=== PATIENT | female | born 1970 | race Caucasian/White ===

== ENCOUNTER 2017-10-03 12:02 | Emergency (ER) | payer BC, OTHER ==
[~2017-10-03] VITALS: Ht 167.6 cm; Wt 53.3 kg
[2017-10-03 12:04] VITALS: Ht 167.6 cm; Wt 53.3 kg
[2017-10-03] MEDS ORDERED: ASPIRIN 81 MG TAB PO STA (12:19)
[2017-10-03] MEDS ORDERED: NITROGLYCERIN 2% 1 GM OINT PKT TD STA (12:19)
[2017-10-03] MEDS ORDERED: NITROGLYCERIN (SL) 0.4 MG TAB SL PRN (12:30)
--- NOTE | 2017-10-03 12:43 | RADRPT ---
PROCEDURE: XR Chest. CLINICAL INDICATION: chest pain TECHNIQUE: Single frontal view of the chest was obtained COMPARISON: None FINDINGS: The heart and mediastinum are within normal limits. There is mild hyperinflation. The lungs are clear. There is no pleural effusion or pneumothorax. RPTAT: AA IMPRESSION: No acute disease. .Jason Linder MD, MD Date Time Electronically viewed and signed by .Jason Linder MD, on 10/03/2017 12:43 .S/
[2017-10-03 12:45] LABS: BASOPHILS % 0.6 % (0.0-2.0); EOSINOPHILS # 0.2 10^3/ul (0.0-0.5); EOSINOPHILS % 3.2 % (0.0-7.0); HEMATOCRIT 38.7 % (37.0-47.0); LYMPHOCYTES # 2.1 10^3/ul (0.8-2.9); LYMPHOCYTES % 31.6 % (15.0-51.0); MEAN CORPUSCULAR HEMOGLOBIN 24.9 pg (29.0-33.0); MEAN CORPUSCULAR VOLUME 80.3 fl (82.0-101.0); MEAN PLATELET VOLUME 10.1 fl (7.4-10.4); MONOCYTE # 0.3 10^3/ul (0.3-0.9); NEUTROPHILS % 59.4 % (39.0-77.0); PLATELET COUNT 207 10^3/UL (140-415); RED BLOOD COUNT 4.82 10^6/ul (4.20-5.40); RED CELL DISTRIBUTION WIDTH 16.4 % (11.5-14.5); WHITE BLOOD COUNT 6.7 10^3/ul (4.8-10.8)
[2017-10-03] MEDS ORDERED: DULO60CA6 PO (13:10)
[2017-10-03] MEDS ORDERED: BUPR8TAB SL (13:14)
[2017-10-03] MEDS ORDERED: LORA-441 PO (13:14)
[2017-10-03] MEDS ORDERED: TRAZ50TA18 PO (13:15)
[2017-10-03 13:20] LABS: ANION GAP 13 (8-16); BLOOD UREA NITROGEN 10 mg/dl (7-20); CALCIUM 9.7 mg/dl (8.4-10.2); CARBON DIOXIDE 29 mmol/L (21-31); CHLORIDE 104 mmol/L (97-110); CREATININE 0.63 mg/dl (0.44-1.00); GLUCOSE 88 mg/dl (70-220); POTASSIUM 4.3 mmol/L (3.5-5.1); SODIUM 142 mmol/L (135-144)
[2017-10-03 13:32] LABS: TROPONIN-I < 0.012 ng/ml (0.00-0.12)
--- NOTE | 2017-10-03 13:53 | ERD ---
ER Documentation Chief Complaint Chief Complaint chest pressure x 3 days HPI Patient is a 47-year-old female with family history of coronary disease and smoking who presents with chest pain. She said that she has midsternal chest pain that started a few days ago that she describes as a "pressure". She has numbness to her arms bilaterally. This pain and numbness comes and goes. She had her primary doctor is a Dr. Agee. ROS All systems reviewed and are negative except as per history of present illness. Medications Home Meds Reported Medications Trazodone Hcl* (Trazodone Hcl*) 50 Mg Tablet, 75 MG PO QHS, #30 TAB 10/03/17 Lorazepam* (Ativan*) 0.5 Mg Tablet, 0.5 MG PO TID Y for ANXIETY, #60 TAB 10/03/17 Buprenorphine Hcl (BUPRENORPHINE HCL) 8 Mg Tab.subl, 4 MG SL BID, TAB.SL 10/03/17 Duloxetine Hcl* (Cymbalta*) 60 Mg Capsule.dr, 60 MG PO AFTER LUNCH, CAP 10/03/17 Allergies Allergies: Coded Allergies: Sulfa (Sulfonamide Antibiotics) (Verified Allergy, Unknown, 10/03/17) PMhx/Soc Hx Psychiatric Problems: Yes (ANXIETY) Hx Alcohol Use: Yes (OCCASIONAL) Hx Substance Use: No Hx Tobacco Use: Yes (YES) Smoking Status: Current every day smoker FmHx Family History: coronary disease Physical Exam Vitals Vital Signs Date Time Temp Pulse Resp B/P Pulse Ox O2 Delivery O2 Flow Rate FiO2 10/03/17 13:02 69 18 152/86 99 Room Air 10/03/17 12:40 Nasal Cannula 2 10/03/17 12:04 97.7 69 18 157/108 100 Physical Exam Const: No acute distress Head: Atraumatic Eyes: Normal Conjunctiva ENT: Normal External Ears, Nose and Mouth. Neck: Full range of motion..~ No meningismus. Resp: Clear to auscultation bilaterally Cardio: Regular rate and rhythm, no murmurs Abd: Soft, non tender, non distended. Normal bowel sounds Skin: No petechiae or rashes Back: No midline or flank tenderness Ext: No cyanosis, or edema Neur: Awake and alert Psych: Normal Mood and Affect Result Diagram: 10/03/17 1230 10/03/17 1230 Results 24 hrs Laboratory Tests Test 10/03/17 12:30 White Blood Count 6.710^3/ul Red Blood Count 4.8210^6/ul Hemoglobin 12.0g/dl Hematocrit 38.7% Mean Corpuscular Volume 80.3fl Mean Corpuscular Hemoglobin 24.9pg Mean Corpuscular Hemoglobin Concent 31.0g/dl Red Cell Distribution Width 16.4% Platelet Count 17116^3/UL Mean Platelet Volume 10.1fl Neutrophils % 59.4% Lymphocytes % 31.6% Monocytes % 5.0% Eosinophils % 3.2% Basophils % 0.6% Nucleated Red Blood Cells % 0.0/100WBC Neutrophils # 4.010^3/ul Lymphocytes # 2.110^3/ul Monocytes # 0.310^3/ul Eosinophils # 0.210^3/ul Basophils # 0.010^3/ul Nucleated Red Blood Cells # 0.010^3/ul Sodium Level 142mmol/L Potassium Level 4.3mmol/L Chloride Level 104mmol/L Carbon Dioxide Level 29mmol/L Anion Gap 13 Blood Urea Nitrogen 10mg/dl Creatinine 0.63mg/dl Glucose Level 88mg/dl Calcium Level 9.7mg/dl Troponin I < 0.012ng/ml Current Medications Medications (Trade) Dose Ordered Sig/Robert Route PRN Reason Start Time Stop Time Status Last Admin Dose Admin Aspirin (Aspirin) 162 mg ONCE STAT PO 10/03/17 12:19 10/03/17 12:20 DC 10/03/17 12:49 Nitroglycerin (Nitroglycerin 2% Oint) 1 inch ONCE STAT TD 10/03/17 12:19 10/03/17 12:20 DC 10/03/17 12:49 Nitroglycerin (Nitroglycerin (Sl Tab) 0.4 Mg) 1 tab Q5M UP TO 3 DOSES PRN SL CHEST PAIN 10/03/17 12:30 Ondansetron HCl (Zofran Inj) 4 mg ER BRIDGE PRN IV NAUSEA AND/OR VOMITING 10/03/17 14:00 10/04/17 13:59 Acetaminophen (Tylenol Tab) 650 mg ER BRIDGE PRN PO MILD PAIN/FEVER 10/03/17 14:00 10/04/17 13:59 Procedures/MDM EKG #1 read by me: Rate/Rhythm: Regular rate and rhythm at a rate of 62 Intervals: Normal Impression: No evidence of ischemia or arrhythmia EKG #2 is pending at this time. Chest x-ray shows no pneumonia or pneumothorax per radiology. Smoking Cessation Therapy: Pt. was lectured for greater than 3 minutes on the health risks of continued smoking and the benefits of cessation. Patient is a 47-year-old female with a family history of coronary disease and smoking who presents with chest pain. Given her risk factors I want to admit her to the hospital to rule out acute coronary syndrome. Her initial troponin is negative. EKG shows no ST elevations. Chest x-ray shows no pneumonia or pneumothorax. At this point I doubt pneumonia, pneumothorax, pulmonary embolism , or aortic dissection. The patient will be admitted to the panel team to a telemetry bed. She was given aspirin and nitroglycerin empirically. Departure Diagnosis: Primary Impression: Chest pain Chest pain type: unspecified Qualified Code: R07.9 - Chest pain, unspecified type Condition: SAHARA Cosme MD Oct 03, 2017 13:53
[2017-10-03] MEDS ORDERED: ACETAMINOPHEN 325 MG TAB PO PRN (14:00)
[2017-10-03] MEDS ORDERED: ONDANSETRON 4 MG INJ IV PRN (14:00)
[2017-10-03 15:24] LABS: D-DIMER 1817.78 ng/ml (<460)
[2017-10-03] MEDS ORDERED: ENOXAPARIN 40 MG/0.4 ML SYG SC ONE (16:00)
[2017-10-03] MEDS ORDERED: CARISOPRODOL 350 MG TAB PO ONE (16:00)
[2017-10-03] MEDS ORDERED: LORAZEPAM 0.5 MG TAB PO ONE (16:00)
[2017-10-03] MEDS ORDERED: IOHEXOL 100 ML ONE (16:05)
[2017-10-03] MEDS ORDERED: SOD CHLORIDE 0.9% 100 ML ONE (16:05)
--- NOTE | 2017-10-03 17:04 | RADRPT ---
PROCEDURE: CTA Chest and pulmonary angiogram. CLINICAL INDICATION: Chest pain and shortness of breath. TECHNIQUE: CT scan of the chest and CT pulmonary angiogram was performed on a multidetector high-r [employer] CT scanner. High-resolution thin slice coronal and sagittal imaging was obtained from the axial source images. 3-D volumetric rendered post processing was performed as well. The patient w as examined following the uncomplicated intravenous administration of 100 cc of Omnipaque-350. The images were reviewed on a PACS workstation. The total exam CTDI equals 42.25, and 4.73 and the total exam DLP equals 223.79 mGy-cm. DICOM images are available. One or more of the following dose reduction techniques were used: Automated exposure control. Adjustment of the mA and/or kV according to patient size. Use of iterative reconstruction technique. COMPARISON: No prior studies are available for comparison. FINDINGS: CT chest: The lungs are clear. There is a calcified granuloma in the superior segment of the left lower lobe on image 4-62. No focal opacification, effusion, pneumothorax, edema, or nodules are seen. The cent ral tracheobronchial tree is clear. The mediastinum is unremarkable without evidence for mass or lymphadenopathy. The vascular structur es of the mediastinum are normal in course and caliber. The heart size is normal without pericardia l thickening or effusion. The axillary, subpectoral, and supraclavicular regions are unremarkable. Imaging obtained through the upper abdomen is remarkable for mild splenomegaly. The adrenal glands are symmetrically normal. The surrounding chest wall is unremarkable. The osseous structures are u nremarkable. CT pulmonary angiogram: No thrombus, clot, filling defect, or pulmonary web is identified. The pulmonary arteries are hannah l in caliber and morphology. No filling defect is present to suggest pulmonary embolism. There is no evidence for pulmonary arterial hypertension. IMPRESSION: 1. No evidence for pulmonary embolism. 2. No mass, lymphadenopathy or acute infiltrates. 3. Mild splenomegaly. RPTAT: BB .Stevie Nash MD, MD Date Time Electronically viewed and signed by .Stevie Nash MD, MD on 10/03/2017 17:04 .O/
--- NOTE | 2017-10-03 17:26 | CONS ---
Date/Time of Note Date/Time of Note DATE: 10/03/17 TIME: 17:20 Assessment/Plan Assessment/Plan Chief Complaint/Hosp Course 47 yo female with atypical chest pain - ACS ruled out with negative troponin and nonischemic EKG, story is not consistent with angina - D-dimer elevaged but CT-A negative for PE - Exam highly suggestive of chostochondirits. I recommended NSAIDs for her - Discussed necessity of smoking cessation at length - Discharge home now, no further workup or management required at this time Problems: Consultation Date/Type/Reason Admit Date/Time Hx of Present Illness 47 yo female wtih heavy smoknig history, severe anxiety presenting with 3 days chest pain Patient extremely anxious, very strung out appearnce reports beign very "on edge ". Last 4 days or so has had pain in very localized area of sternum. Constant pain present at rest. Wosre with deep breathing. Denies SOB. Coughs frequently from smoking chronically. Worse with cough. Walks long distances daily because doesn't have a car. No exertional symptoms Social History Smoking Status: Current every day smoker Exam/Review of Systems Vital Signs Vitals Vital Signs Date Time Temp Pulse Resp B/P Pulse Ox O2 Delivery O2 Flow Rate FiO2 10/03/17 13:02 69 18 152/86 99 Room Air 10/03/17 12:40 2 10/03/17 12:04 97.7 Exam Anxious, stressed apperance Somewhat dischevelled Lungs clear b/l ++ Pain to palpation over left inferior strenum at costal juntion Heart sound normal NO edema Heavily tattooed Results Result Diagram: 10/03/17 1230 10/03/17 1230 Results 24 hrs Laboratory Tests Test 10/03/17 12:30 10/03/17 14:50 White Blood Count 6.7 Red Blood Count 4.82 Hemoglobin 12.0 Hematocrit 38.7 Mean Corpuscular Volume 80.3 L Mean Corpuscular Hemoglobin 24.9 L Mean Corpuscular Hemoglobin Concent 31.0 L Red Cell Distribution Width 16.4 H Platelet Count 207 Mean Platelet Volume 10.1 Neutrophils % 59.4 Lymphocytes % 31.6 Monocytes % 5.0 Eosinophils % 3.2 Basophils % 0.6 Nucleated Red Blood Cells % 0.0 Neutrophils # 4.0 Lymphocytes # 2.1 Monocytes # 0.3 Eosinophils # 0.2 Basophils # 0.0 Nucleated Red Blood Cells # 0.0 D-Dimer 1817.78 H D-Dimer Comment Sodium Level 142 Potassium Level 4.3 Chloride Level 104 Carbon Dioxide Level 29 Anion Gap 13 Blood Urea Nitrogen 10 Creatinine 0.63 Glucose Level 88 Calcium Level 9.7 Troponin I < 0.012 < 0.012 IVANNA GARRETT MD Oct 03, 2017 17:26
[2017-10-03] MEDS ORDERED: IBUP-1542 PO (18:04)
[2017-10-03 18:21] VITALS: BP 119/85; PULSE 71; RESP 18; TEMP 98
== END 2017-10-03 18:25 | disposition home or self-care (01) ==
LOC: E/R 12:02
DX: R07.89 Other chest pain (principal); F17.210 Nicotine dependence, cigarettes, uncomplicated; I25.10 Atherosclerotic heart disease of native coronary artery without angina pectoris
CPT/HCPCS: 36415; 71010; 71275; 80048; 84484; 85025; 85378; 93005; 96372; 99285; J1650; Q9967